=== PATIENT | female | born 1975 | race Two or more races ===

== ENCOUNTER 2020-05-17 05:40 | Day surgery (SDC) | payer OTHER ==
[2020-05-17] MEDS ORDERED: PROTONIX40 MG PO (08:13)
== END 2020-05-17 09:58 | disposition home or self-care (01) ==
LOC: AMB-ENDOS 05:40
PROVIDERS: ATTEND Surgery
DX: D13.1 Benign neoplasm of stomach (principal); Z20.828 Contact with and (suspected) exposure to other viral communicable diseases